=== PATIENT | female | born 1970 | race Caucasian/White ===

== ENCOUNTER 2018-12-31 11:10 | Emergency (ER) | payer OTHER, SELFPAY ==
[2018-12-31 11:27] VITALS: BP 146/90; PULSE 88; RESP 20; TEMP 36.5; O2SAT 96
--- NOTE | 2018-12-31 12:10 | DI.US.S_ITS ---
PROCEDURE: US PERIPH VENOUS LOW EXTREM LT INDICATIONS: LT ANKLE SWELLING TECHNIQUE: Real-time imaging, as well as color and pulse Doppler interrogation, were performed of the lower extremity deep veins from the inguinal ligament to the popliteal fossa. COMPARISON: None. FINDINGS: The common femoral, femoral and popliteal veins are normally compressible, and free of intraluminal thrombus. Color and pulse Doppler demonstrate normal phasic intraluminal flow. There is normal augmentation response to distal compression maneuver. IMPRESSION: No evidence of deep vein thrombosis involving the left lower extremity. Dictated by: Fredrick Hernandez M.D. on 12/31/2018 at 11:45 Approved by: Fredrick Hernandez M.D. on 12/31/2018 at 11:46
--- NOTE | 2018-12-31 13:11 | ED_ITS ---
HPI - Extremity Problem General Chief complaint: Extremity Problem,Nontraumatic Stated complaint: US Left lower leg pain Time Seen by Provider: 12/31/18 12:09 Source: patient Mode of arrival: ambulatory Limitations: no limitations History of Present Illness HPI Narrative: Patient is a 48-year-old female with history of factor 5 Leiden presenting with left ankle and leg swelling. She says over the last week and a half it has become more painful and swollen. She says she has had swelling in that ankle off and on since she had rotator cuff surgery in October. She has no shortness of breath. She takes Plavix regularly. She is supposed to have an outpatient venous Doppler but came to the ER instead. She denies any injury to the MD Complaint: extremity pain and extremity swelling Location: left and lower extremity Related Data Allergies Allergy/AdvReac Type Severity Reaction Status Date / Time Penicillin Allergy Unknown Uncoded 11/24/17 13:09 Review of Systems Review of Systems GENERAL: Denies chills, fatigue, malaise, fever, sweats, travel HEENT: Denies sinus pain, ear pain, sore throat, difficulty swallowing, neck pain RESPIRATORY: Denies dyspnea, cough, wheezing, hemoptysis, sputum. CARDIOVASCULAR: Denies chest pain, palpitations, orthopnea, edema GASTROINTESTINAL: Denies nausea, vomiting, abdominal pain, diarrhea, constipation, melena. : Denies dysuria, frequency, incontinence, hematuria, urinary retention, flank pain. MUSCULOSKELETAL: See HPI SKIN: No rash, no erythema, no pruritus NEUROLOGIC: Denies weakness, dizziness, headache, numbness, change in speech, confusion PSYCHIATRIC: No concerning psychosocial issues. 12 point review of systems is negative except for those stated above and HPI [facility] Medical History Factor 5 Leiden mutation, heterozygous (Acute) Social History Smoking Status: Current every day smoker Social History Smoking Status: Current every day smoker Exam Initial Vital Signs Initial Vital Signs: Vital Signs Temperature 97.7 F 12/31/18 11:27 Pulse Rate 88 12/31/18 11:27 Respiratory Rate 20 12/31/18 11:27 Blood Pressure 146/90 H 12/31/18 11:27 Pulse Oximetry 96 12/31/18 11:27 GENERAL: Well-appearing, well-nourished and in no acute distress. HEENT: Head atraumatic,EOMI, pupils reactive, CARDIOVASCULAR: Regular rate and rhythm without murmurs, rubs or gallops. RESPIRATORY: Breath sounds equal bilaterally, no wheezes rales or rhonchi. EXTREMITIES: Normal range of motion, no clubbing or edema. Neurovascularly intact Left ankle no gross bony deformity she is able to stand on it without any problem. Tender to touch though no erythema NEUROLOGICAL: Alert and oriented x4. SKIN: Warm, dry, no laceration, no petechiae, no rashes or lesions. Course Orders Ordered: ED Orders 12/31/18 12:10 US perip venous low extrem lt Stat Vital Signs - 8 hr 12/31/18 11:27 12/31/18 13:15 Temperature 97.7 F Pulse Rate 88 87 Respiratory Rate 20 16 Blood Pressure 146/90 H Blood Pressure [Left Arm] 144/84 H Pulse Oximetry 96 97 MDM - Extremity (Nontraumatic) Imaging Data Venous US: Radiologist's impression: PROCEDURE: US [facility] VENOUS LOW EXTREM LT INDICATIONS: LT ANKLE SWELLING TECHNIQUE: Real-time imaging, as well as color and pulse Doppler interrogation, were performed of the lower extremity deep veins from the inguinal ligament to the popliteal fossa. COMPARISON: None. FINDINGS: The common femoral, femoral and popliteal veins are normally compressible, and free of intraluminal thrombus. Color and pulse Doppler demonstrate normal phasic intraluminal flow. There is normal augmentation response to distal compression maneuver. IMPRESSION: No evidence of deep vein thrombosis involving the left lower extremity. Dictated by: Fredrick Hernandez M.D. on 12/31/2018 at 11:45 Discharge Plan Departure Patient Disposition: Home Clinical Impression: Lower extremity edema Discharge Date/Time: 12/31/18 13:40 Interventions: ED Discharge Assessment Last Done: 12/31/18 13:39 Instructions: DI for Peripheral Edema, Unilateral Activity Restrictions/Additional Instructions: *You have been diagnosed with left leg swelling *What to do: No blood clot *Continue to take medications as directed *Follow up with your primary care provider in 2-3 days *Return to ER if you should have any new, worsening or concerning symptoms Referrals: Clay Cee [Primary Care Provider] -
[2018-12-31 13:15] VITALS: BP 144/84; PULSE 87; RESP 16; O2SAT 97
== END 2018-12-31 13:40 | disposition home or self-care (01) ==
PROVIDERS: Emergency Provider Emergency Medicine; PCP Physician Assistant Medical
DX: R60.0 Localized edema (principal); M79.662 Pain in left lower leg; Z79.82 Long term (current) use of aspirin
CPT/HCPCS: 93971; 99282; 99283

== ENCOUNTER 2020-12-31 21:49 | Emergency (ER) | payer OTHER, SELFPAY ==
[2020-12-31 21:51] VITALS: BP 157/86; PULSE 76; RESP 15; TEMP 36.9; O2SAT 97; BMI 35.4
--- NOTE | 2020-12-31 21:57 | DI.RAD.S_ITS ---
PROCEDURE: XR CHEST 1V INDICATIONS: chest pain TECHNIQUE: One view of the chest was acquired. COMPARISON: None. FINDINGS: Surgical changes and devices: None. Lungs and pleura: Lungs are clear. No pleural effusions or pneumothorax. Mediastinum: Mediastinal contours appear normal. Heart size is normal. Bones and chest wall: No suspicious bony lesions. Overlying soft tissues appear unremarkable. IMPRESSION: No acute cardiopulmonary disease process. Dictated by: Beryl Knowles MD, PhD on 01/01/2021 at 8:55 Approved by: Beryl Knowles MD, PhD on 01/01/2021 at 8:59
[2020-12-31 22:17] LABS: Add Manual Diff / Slide Review NO; Basophils Absolute Auto 100 /uL (0-100); Basophils Percent Auto 0.6 % (0-2); Eosinophils Absolute Auto 400 /uL (0-450); Eosinophils Percent Auto 4.3 % (2-4); Hematocrit 40.1 % (36-46); Hemoglobin 13.5 g/dL (12.0-16.0); Lymphocytes Absolute Auto 3900 /uL (1100-4500); Lymphocytes Percent Auto 41.9 % (25-40); Mean Corpuscular HGB Conc 33.7 % (30-36); Mean Corpuscular Hemoglobin 30.6 PG (26-34); Monocytes Absolute Auto 700 /uL (0-900); Monocytes Percent Auto 7.5 % (3-14); Neutrophils Absolute Auto 4300 /uL (1500-7000); Neutrophils Percent Auto 45.7 % (50-75); Platelet Count 372 X10^3/uL (150-400); Red Blood Cell Count 4.41 X10^6/uL (4.0-5.2); Red Cell Distribution Width 12.6 % (11.6-14.8); White Blood Cell Count 9.3 X10^3/uL (4.5-11.0)
[2020-12-31 22:22] LABS: Prothrombin Time 10.9 SECONDS (10.1-12.7)
[2020-12-31 22:25] LABS: PTT Partial Thromboplastin Tim 35 SECONDS (26.4-36.2)
[2020-12-31 22:26] LABS: Alanine Aminotransferase 27 IU/L (<35); Albumin 4.5 g/dL (3.5-5.0); Albumin Globulin Ratio 1.2 (1.0-2.8); Alkaline Phosphatase 108 U/L (38-126); Aspartate Aminotransferase 26 IU/L (14-36); BUN Creatinine Ratio 16.2 (6-22); Bilirubin Total 0.2 mg/dL (0.2-1.3); Blood Urea Nitrogen 12 mg/dL (7-17); Calcium 9.7 mg/dL (8.4-10.2); Carbon Dioxide 29 mmol/L (22-32); Chloride 105 mmol/L (98-107); Creatine Kinase 51 U/L (30-135); Estimated Glomerular Filt Rate > 60.0 mL/min (>60); Globulin 3.8 g/dL (1.7-4.1); Glucose 136 mg/dL (70-100); HEMOLYSIS 17 (0-50); Lipase 163 U/L (23-300); Potassium 3.7 mmol/L (3.4-5.1); Sodium 143 mmol/L (137-145); Total Protein 8.3 g/dL (6.3-8.2)
[2020-12-31 22:38] LABS: Troponin I < 0.012 ng/mL (0.01-0.034)
[2020-12-31 23:34] VITALS: PULSE 80; RESP 17; O2SAT 96
[2021-01-01] VITALS: PULSE 70; RESP 16; O2SAT 97
--- NOTE | 2021-01-01 00:18 | ED_ITS ---
HPI - Chest Pain General Chief Complaint: Chest Pain Stated Complaint: chest pain Time Seen by Provider: 01/01/21 00:18 Source: patient Mode of arrival: Ambulatory Limitations: no limitations History of Present Illness HPI narrative: 50-year-old woman with a history of chronic left shoulder issues and factor 5 Leiden deficiency currently on Plavix presents with complaints of left chest pain radiating to the left shoulder. She stated it began this evening while she was at rest she denies any dyspnea, nausea, dizziness. No palpitations, no nausea, vomiting, fever, cough, abdominal pain, change to bowel or bladder habits. She notes that she has not been doing any significant increased physical or unusual physical activity lately. She has no arthritis or arthralgia complaints. Related Data Allergies Allergy/AdvReac Type Severity Reaction Status Date / Time Penicillin Allergy Unknown Uncoded 11/24/17 13:09 Review of Systems Review of Systems Narrative: Remainder of complete review of systems is otherwise unremarkable except for that included in the HPI. Patient History Medical History Factor 5 Leiden mutation, heterozygous Social History Smoking Status: Current every day smoker Smoking Status: Current every day smoker alcohol intake frequency: holidays/special occasions only Substance Use Type: does not use Exam Narrative Exam Narrative: General: Healthy appearing, in no acute distress. Able to give a complete and coherent history. Well-nourished well-developed HEENT: Moist mucous membranes, normal sclera with reactive pupils, Neck: No JVD, supple Respiratory: Lungs are clear to auscultation, no wheezing no rales no rhonchi. Full and symmetrical air movement Cardiac: Regular rate and rhythm no murmurs no bruits Chest: Tenderness along left sternal border/costochondral margins reproducing the pain that she was noting Abdomen: Soft, nontender, good bowel tones, no flank pain Skin: Warm and dry, no rashes Neurologic: Grossly neurologically intact with no obvious asymmetries or abnormalities Extremities: No trauma, well perfused Psych: Cooperative, appropriate insight and affect Initial Vital Signs Initial Vital Signs: Vital Signs Temperature 98.4 F 12/31/20 21:51 Pulse Rate 76 12/31/20 21:51 Respiratory Rate 15 12/31/20 21:51 Blood Pressure 157/86 H 12/31/20 21:51 Pulse Oximetry 97 12/31/20 21:51 Course Orders Ordered: ED Orders 12/31/20 21:57 XR chest 1V Stat EKG-12 Lead Stat 12/31/20 22:10 Complete Blood Count AUTO DIFF Stat Comprehensive Metabolic Panel Stat Lipase Stat Partial Thromboplastin Time Stat Prothrombin Time INR Stat Troponin & CK Cardiac Panel Stat Vital Signs Vital signs: Vital Signs - 8 hr 12/31/20 21:51 12/31/20 23:34 01/01/21 00:00 Temperature 98.4 F Pulse Rate 76 80 70 Respiratory Rate 15 17 16 Blood Pressure 157/86 H Pulse Oximetry 97 96 97 01/01/21 00:30 01/01/21 00:37 Temperature Pulse Rate 68 69 Respiratory Rate 30 H 26 H Blood Pressure 187/91 H Pulse Oximetry 98 98 MDM - Chest Pain Medical Records Data Attestation: I reviewed the patient's medical records. Lab Data Attestation: I reviewed the patient's lab results. Result diagrams: 12/31/20 22:10 12/31/20 22:10 Labs: Lab Results 12/31/20 12/31/20 12/31/20 Range/Units 22:10 22:10 22:10 WBC 9.3 (4.5-11.0) X10^3/uL RBC 4.41 (4.0-5.2) X10^6/uL Hgb 13.5 (12.0-16.0) g/dL Hct 40.1 (36-46) % MCV 91.0 (80-100) fL MCH 30.6 (26-34) PG MCHC 33.7 (30-36) % RDW 12.6 (11.6-14.8) % Plt Count 372 (150-400) X10^3/uL Neut % (Auto) 45.7 L (50-75) % Lymph % (Auto) 41.9 H (25-40) % [place] % (Auto) 7.5 (3-14) % Eos % (Auto) 4.3 H (2-4) % Baso % (Auto) 0.6 (0-2) % Neut # (Auto) 4300 (0851-0280) /uL Lymph # (Auto) 3900 (0839-9010) /uL [place] # (Auto) 700 (0-900) /uL Eos # (Auto) 400 (0-450) /uL Baso # (Auto) 100 (0-100) /uL PT 10.9 (10.1-12.7) SECONDS INR 1.0 (0.9-1.3) APTT 35 (26.4-36.2) SECONDS Sodium 143 (137-145) mmol/L Potassium 3.7 (3.4-5.1) mmol/L Chloride 105 (98-107) mmol/L Carbon Dioxide 29 (22-32) mmol/L BUN 12 (7-17) mg/dL Creatinine 0.74 (0.52-1.04) mg/dL Estimated GFR > 60.0 (>60) mL/min BUN/Creatinine Ratio 16.2 (6-22) Glucose 136 H (70-100) mg/dL Calcium 9.7 (8.4-10.2) mg/dL Total Bilirubin 0.2 (0.2-1.3) mg/dL AST 26 (14-36) IU/L ALT 27 (<35) IU/L Alkaline Phosphatase 108 (38-126) U/L Total Creatine Kinase 51 (30-135) U/L CK-MB (CK-2) TNP CK-MB (CK-2) Rel Index TNP Troponin I < 0.012 (0.01-0.034) ng/mL Total Protein 8.3 H (6.3-8.2) g/dL Albumin 4.5 (3.5-5.0) g/dL Globulin 3.8 (1.7-4.1) g/dL Albumin/Globulin Ratio 1.2 (1.0-2.8) Lipase 163 (23-300) U/L Imaging Data Chest x-ray: Radiologist's Impression: No significant abnormalities Julio César Ayala MD ECG Data Attestation: I personally reviewed and interpreted this ECG as follows: Interpretation: Sinus rhythm at a rate of 77 No acute EKG changes MDM Narrative Medical decision making narrative: 50-year-old woman with chest pain developing over the course of the evening is reproducible with palpation along the left sternal border. She does have some chronic left shoulder pain in that may be that positionally she has been favoring the shoulder to exacerbate musculoskeletal connections along her sternum. At this point there is no evidence of acute coronary syndrome, pulmonary embolism, pneumonia or pne umothorax. Findings are reviewed reassurance is given and she is safe for home discharge Discharge Plan Departure Patient Disposition: Home Clinical Impression: Acute costochondritis Instructions: DI for Costochondritis Activity Restrictions/Additional Instructions: Thank you for coming in today Your blood work was very reassuring. There is no evidence of infection, pneumonia, collapsed lung, heart attack or heart attack like syndrome. Your symptoms and presentation do not make me concerned for a pulmonary embolus. The fact that you are tender when I press along your breast bone suggests that this may be costochondritis. It is possible that your left shoulder pain and the position that your putting her shoulder in your chest into alleviate some of that pain is irritating the joints where the ribs attached your breast bone. Using Tylenol is completely appropriate for this type of pain. You can also try alternating ice and heat to your breast bone to see which 1 might be more effective in controlling the pain. I hope you feel better. Referrals: Clay Cee PA-C [Primary Care Provider] -
[2021-01-01 00:30] VITALS: PULSE 68; RESP 30; O2SAT 98
[2021-01-01 00:37] VITALS: BP 187/91; PULSE 69; RESP 26; O2SAT 98
== END 2021-01-01 00:42 | disposition home or self-care (01) ==
PROVIDERS: Emergency Provider Emergency Medicine; PCP Physician Assistant Medical
DX: M94.0 Chondrocostal junction syndrome [Tietze] (principal); R07.9 Chest pain, unspecified
CPT/HCPCS: 36415; 71045; 80053; 82550; 83690; 84484; 85025; 85610; 85730; 93005; 93010; 99283; 99284